=== PATIENT | male | born 1950 | race American Indian/Alaskan Native ===

== ENCOUNTER 2017-01-01 12:13 | Inpatient (IN) | payer MEDICARE ==
[2017-01-01 12:49] LABS: Basophils % (Auto) 0.2 % (0.0-1.8); Hematocrit 42.8 % (35.5-45.6); Mean Corpuscular HGB Conc 35 % (32-34); Mean Corpuscular Hemoglobin 32 pg (28-32); Mean Corpuscular Volume 91 fl (84-94); Platelet Count 201 K/mm3 (140-440); Red Cell Distribution Width 12.8 % (13.2-15.2); White Blood Count 12.4 K/mm3 (4.5-11.0)
[2017-01-01 13:07] LABS: Bilirubin,Urine NEG (Negative); Blood,Urine MOD (Negative); Ketones,Urine TR mg/dL (Negative); Leukocyte Esterase,Urine NEG (Negative); Nitrite,Urine NEG (Negative); Protein,Urine <15 mg/dL mg/dL (Negative); Urobilinogen,Urine < 2.0 mg/dL (<2.0)
[2017-01-01 13:11] LABS: Albumin 4.6 g/dL (3.9-5); Albumin/Globulin Ratio 1.3 %; Bilirubin,Total 0.6 mg/dL (0.1-1.2); Calcium 9.4 mg/dL (8.4-10.2); Chloride 91.7 mmol/L (98-107); Potassium 4.1 mmol/L (3.6-5.0); Total Protein 8.2 g/dL (6.3-8.2)
[2017-01-01] MEDS ORDERED: TYLENOL #3 PO ONE (14:00)
[2017-01-01] MEDS ORDERED: NACL 0.9% 500 ML 500 ML IV ONE (14:00)
--- NOTE | 2017-01-01 14:01 | Emergency Department Report ---
ED General Adult HPI - General Chief complaint: Urogenital-Male Stated complaint: ABD PAIN/URINE ISSUE Time Seen by Provider: 01/01/17 13:53 Source: patient, RN notes reviewed Mode of arrival: Ambulatory Limitations: No Limitations - History of Present Illness Initial comments: This is a 66-year-old male, the patient is previously unknown to this provider, he thinks his primary care doctor is Dr. De Souza, he has no chronic medical conditions that he is aware of. He presents to the ER with complaint of suprapubic abdominal fullness, urinary dribbling. No fecal retention or incontinence. No saddle anesthesia. No headache, neck pain, chest pain, abdominal pain and shortness of breath. Symptoms are constant, there is no testicular pain, abdominal pain worsens with palpation, decreases with rest, and it does not radiate anywhere. Patient endorses he is able to urinate just slightly, but endorses persistent post void dribbling and sensation of fullness. -: Gradual Location: abdomen Quality: aching Consistency: constant Improves with: rest Worsens with: movement Associated Symptoms: loss of appetite, malaise, weakness. denies: confusion, chest pain, cough, diaphoresis, fever/chills, rash, seizure, shortness of breath , syncope - Related Data Previous Rx's Medication Instructions Recorded Last Taken Type Tamsulosin [Flomax] 0.8 mg PO QDAY #60 capsule 01/03/17 Unknown Rx Allergies Allergy/AdvReac Type Severity Reaction Status Date / Time No Known Allergies Allergy Unverified 01/01/17 12:27 ED Review of Systems ROS: Stated complaint: ABD PAIN/URINE ISSUE Other details as noted in HPI Constitutional: malaise Eyes: denies: vision change ENT: denies: epistaxis Respiratory: denies: orthopnea Gastrointestinal: abdominal pain Genitourinary: as per HPI. denies: testicular pain Musculoskeletal: denies: back pain Skin: denies: lesions Neurological: weakness ED Past Medical Hx - Past Medical History Previous Medical History?: No - Surgical History Past Surgical History?: No - Social History Smoking Status: Unknown if ever smoked Substance Use Type: Alcohol - Medications Home Medications: Home Medications Medication Instructions Recorded Confirmed Last Taken Type Tamsulosin [Flomax] 0.8 mg PO QDAY #60 capsule 01/03/17 Unknown Rx ED Physical Exam - General Limitations: No Limitations General appearance: alert, in distress - Head Head exam: Present: atraumatic, normocephalic - Eye Eye exam: Present: normal appearance, EOMI. Absent: nystagmus - ENT ENT exam: Present: normal exam, normal orophraynx, mucous membranes moist, normal external ear exam - Neck Neck exam: Present: normal inspection, full ROM. Absent: tenderness, meningismus - Respiratory Respiratory exam: Present: normal lung sounds bilaterally. Absent: respiratory distress, wheezes, rales, rhonchi, stridor, chest wall tenderness, accessory muscle use, decreased breath sounds, prolonged expiratory - Cardiovascular Cardiovascular Exam: Present: regular rate, normal rhythm, normal heart sounds. Absent: bradycardia, tachycardia, irregular rhythm, systolic murmur, diastolic murmur, rubs, gallop - GI/Abdominal GI/Abdominal exam: Present: soft, distended, tenderness, normal bowel sounds, other (suprapubic distention and fullness noted). Absent: guarding, rebound, rigid, pulsatile mass - Rectal Rectal exam: Present: deferred - exam: Present: normal inspection. Absent: testicular tenderness External exam: Present: normal external exam, other (there is no testicular tenderness. There is normal testicular lie bilaterally. There is normal cremasteric reflex bilaterally.) - Extremities Exam Extremities exam: Present: normal inspection, full ROM, normal capillary refill. Absent: pedal edema, joint swelling, calf tenderness - Back Exam Back exam: Present: normal inspection, full ROM. Absent: tenderness, CVA tenderness (R), CVA tenderness (L), muscle spasm, paraspinal tenderness, vertebral tenderness - Neurological Exam Neurological exam: Present: alert, oriented X3, other (Extraocular movements intact. Tongue midline. No facial droop. Facial sensation intact to light touch in the V1, V2, V3 distribution bilaterally. 5 and 5 strength in 4 extremities.. Sensation is intact to light touch in 4 extremities.). Absent: motor sensory deficit - Psychiatric Psychiatric exam: Present: normal affect, normal mood - Skin Skin exam: Present: warm, dry, intact, normal color. Absent: rash ED Course Vital Signs 01/01/17 01/01/17 01/01/17 12:23 15:00 15:27 Temperature 97.4 F L 98.1 F Pulse Rate 92 H 74 Respiratory 18 16 17 Rate Blood Pressure 200/110 Blood Pressure [Left] O2 Sat by Pulse 99 Oximetry 01/01/17 01/01/17 15:56 17:00 Temperature 97.8 F Pulse Rate 68 64 Respiratory 19 18 Rate Blood Pressure Blood Pressure 179/91 183/97 [Left] O2 Sat by Pulse 98 Oximetry - Reevaluation(s) Reevaluation #1: 01/01/17 14:19 Differential diagnosis: Post obstructive uropathy, hypertensive urgency, dehydration, electrolyte derangement, urinary obstruction Assessment and plan: 66-year-old male, clinically sober, with post void dribbling, fullness, clinically has a full bladder, most likely has postobstructive uropathy. He is afebrile with reassuring vital signs with the exception of hypertension of which there may be a pain component. Garcia catheter placement is pending, noncontrast CT scan of the abdomen/pelvis is pending, the patient will be given IV fluids, at this point in time, I will withhold antihypertensives pending placement of a Garcia catheter. We will also discussed with nephrology, patient will require admission for rehydration and normalization of renal function. Assuming no acute surgical disease is identified on CT scan, I do not see a reason to obtain emergent urologic consultation, because if the patient were not renal failure, I would have discharged him with a leg bag to follow up with outpatient urology. Reevaluation #2: 01/01/17 14:37 Case discussed with nephrologyChana, they will follow in consultation. Reevaluation #3: 01/01/17 15:02 CT scan confirms obstructive uropathy, Garcia catheter placed, draining clear yellow urine, currently 400 mL. Case presented to Hospital physician, Dr. Stephens , who accepts the patient to his medical service for acute renal failure with obstructive uropathy. ED Medical Decision Making - Lab Data Result diagrams: 01/02/17 13:11 01/03/17 07:11 Vital Signs 01/01/17 12:23 Temperature 97.4 F L Pulse Rate 92 H Respiratory 18 Rate Blood Pressure 200/110 O2 Sat by Pulse 99 Oximetry Lab Results 01/01/17 01/01/17 01/01/17 Range/Units 12:37 12:37 Unknown WBC 12.4 H (4.5-11.0) K/mm3 RBC 4.70 (3.65-5.03) M/mm3 Hgb 15.0 (11.8-15.2) gm/dl Hct 42.8 (35.5-45.6) % MCV 91 (84-94) fl MCH 32 (28-32) pg MCHC 35 H (32-34) % RDW 12.8 L (13.2-15.2) % Plt Count 201 (140-440) K/mm3 Lymph % (Auto) 5.4 L (13.4-35.0) % [place] % (Auto) 9.5 H (0.0-7.3) % Eos % (Auto) 0.0 (0.0-4.3) % Baso % (Auto) 0.2 (0.0-1.8) % Lymph # 0.7 L (1.2-5.4) K/mm3 [place] # 1.2 H (0.0-0.8) K/mm3 Eos # 0.0 (0.0-0.4) K/mm3 Baso # 0.0 (0.0-0.1) K/mm3 Seg Neutrophils % 84.9 H (40.0-70.0) % Seg Neutrophils # 10.6 H (1.8-7.7) K/mm3 Sodium 131 L (137-145) mmol/L Potassium 4.1 (3.6-5.0) mmol/L Chloride 91.7 L (98-107) mmol/L Carbon Dioxide 22 (22-30) mmol/L Anion Gap 21 mmol/L BUN 34 H (9-20) mg/dL Creatinine 2.5 H (0.8-1.5) mg/dL Estimated GFR 31 ml/min BUN/Creatinine Ratio 14 % Glucose 117 H (75-100) mg/dL Calcium 9.4 (8.4-10.2) mg/dL Total Bilirubin 0.60 (0.1-1.2) mg/dL AST 35 (5-40) units/L ALT 15 (7-56) units/L Alkaline Phosphatase 55 (35-129) units/L Total Protein 8.2 (6.3-8.2) g/dL Albumin 4.6 (3.9-5) g/dL Albumin/Globulin Ratio 1.3 % Lipase 35 (13-60) units/L Urine Color Yellow (Yellow) Urine Turbidity Clear (Clear) Urine pH 5.0 (5.0-7.0) Ur Specific [place] 1.011 (1.003-1.030) Urine Protein <15 mg/dl (Negative) mg/dL Urine Glucose (UA) 50 (Negative) mg/dL Urine Ketones Tr (Negative) mg/dL Urine Blood Mod (Negative) Urine Nitrite Neg (Negative) Urine Bilirubin Neg (Negative) Urine Urobilinogen < 2.0 (<2.0) mg/dL Ur Leukocyte Esterase Neg (Negative) Urine WBC (Auto) 2.0 (0.0-6.0) /HPF Urine RBC (Auto) 1.0 (0.0-6.0) /HPF Critical care attestation.: If time is entered above; I have spent that time in minutes in the direct care of this critically ill patient, excluding procedure time. ED Disposition Clinical Impression: ARF (acute renal failure), Obstructive uropathy Disposition: OP ADMIT IP TO THIS HOSP Is pt being admited?: Yes Condition: Good
--- NOTE | 2017-01-01 14:41 | Cat Scan Report ---
CT OF THE ABDOMEN AND PELVIS WITHOUT CONTRAST HISTORY: Abdominal pain. TECHNIQUE: Helical CT without contrast. Sagittal and coronal reformatted images. FINDINGS: The bladder is markedly distended with simple appearing fluid. There is moderate bilateral hydronephrosis. The prostate gland is enlarged measuring 6 cm in diameter. The liver, biliary system, pancreas, spleen, adrenal glands and kidneys are unremarkable. The bowel loops are normal caliber. The appendix is not confidently identified. No evidence for ascites, abscess or free air. No bulky adenopathy. Normal heart size. Clear lung bases. No suspicious bony lesion. IMPRESSION: Distended bladder and bilateral hydronephrosis. Bladder outlet obstruction is suspected. This is probably secondary to an enlarged prostate gland.
--- NOTE | 2017-01-01 15:12 | History and Physical Report ---
History of Present Illness Chief complaint: My stomach was tight History of present illness: 66 YO Male with No PMH presents to ED for evaluation. Pt states that he has experienced fullness in his lower abdomen with inability to urinate for the past week with worsening symptoms over the past 2 days. Pt acknowledges "dribbling of urine" with interrupted urine stream. Pt states that symptoms are constant, there is no testicular pain. 'Feeling of abdominal fullness worsens with palpation, decreases with rest. Pt denies fecal retention or incontinence, saddle anesthesia, fever, chills, headache, neck pain, chest pain, abdominal pain, hematuria, NVD, Skin rash, shortness of breath. or recent ill contacts. Pt seen and evaluated in ED and found to have palpable bladder, and symptoms consistent with urinary retention. Garcia catheter placed in ED with return of urine and improvement in symptoms. Past History Past Medical History: No medical history, other (reviewed) Past Surgical History: No surgical history, Other (reviewed) Social history: , lives with family. denies: smoking, alcohol abuse, prescription drug abuse Family history: hypertension Medications and Allergies Allergies Allergy/AdvReac Type Severity Reaction Status Date / Time No Known Allergies Allergy Unverified 01/01/17 12:27 Home Medications Medication Instructions Recorded Confirmed Last Taken Type No Known Home Medications [No 01/01/17 01/01/17 Unknown History Reported Home Medications] Review of Systems Constitutional: no weight loss, no weight gain, no fever, no chills Ears, nose, mouth and throat: no ear pain, no ear discharge, no tinnitis, no decreased hearing, no nose pain, no nasal congestion, no nasal discharge Cardiovascular: no chest pain, no orthopnea, no palpitations, no rapid/ irregular heart beat, no edema, no syncope Respiratory: no cough, no cough with sputum, no excessive sputum, no hemoptysis , no shortness of breath, no dyspnea on exertion Gastrointestinal: no nausea, no vomiting, no diarrhea, no constipation, no BRBPR , no melena, no hematochezia Genitourinary Male: dysuria, urinary frequency, urinary hesitancy, no hematuria , no genital pain, no genital sores, no impotence, no decreased libido Rectal: no pain, no incontinence, no bleeding Musculoskeletal: no neck stiffness, no neck pain, no shooting arm pain, no arm numbness/tingling, no low back pain, no shooting leg pain Integumentary: no rash, no pruritis, no redness, no sores, no wounds, no jaundice Neurological: no head injury, no transient paralysis, no paralysis, no weakness , no parathesias, no numbness, no tingling, no seizures, no syncope Psychiatric: no anxiety, no memory loss, no change in sleep habits, no sleep disturbances, no insomnia, no hypersomnia, no change in appetite, no change in libido Endocrine: no cold intolerance, no heat intolerance, no polyphagia, no excessive thirst, no polydipsia, no polyuria, no nocturia Hematologic/Lymphatic: no easy bruising, no easy bleeding Allergic/Immunologic: no urticaria, no allergic rhinitis, no wheezing Exam - Constitutional Vitals: Temp Pulse Resp BP Pulse Ox 97.4 F L 92 H 18 200/110 99 01/01/17 12:23 01/01/17 12:23 01/01/17 12:23 01/01/17 12:23 01/01/17 12:23 General appearance: Present: mild distress - EENT Eyes: Present: PERRL ENT: hearing intact, clear oral mucosa - Neck Neck: Present: supple, normal ROM - Respiratory Respiratory effort: normal Respiratory: bilateral: CTA - Cardiovascular Heart Sounds: Present: S1 & S2. Absent: rub, click - Extremities Extremities: pulses symmetrical, No edema Peripheral Pulses: within normal limits - Abdominal General gastrointestinal: Present: soft, non-tender, non-distended, normal bowel sounds Male genitourinary: Present: normal - Integumentary Integumentary: Present: clear, warm, dry - Musculoskeletal Musculoskeletal: gait normal, strength equal bilaterally - Psychiatric Psychiatric: appropriate mood/affect, intact judgment & insight - Neurologic Neurologic: CNII-XII intact, moves all extremities Results - Labs CBC & Chem 7: 01/01/17 12:37 01/01/17 12:37 Labs: Abnormal lab results 01/01/17 01/01/17 Range/Units 12:37 12:37 WBC 12.4 H (4.5-11.0) K/mm3 MCHC 35 H (32-34) % RDW 12.8 L (13.2-15.2) % Lymph % (Auto) 5.4 L (13.4-35.0) % [place] % (Auto) 9.5 H (0.0-7.3) % Lymph # 0.7 L (1.2-5.4) K/mm3 [place] # 1.2 H (0.0-0.8) K/mm3 Seg Neutrophils % 84.9 H (40.0-70.0) % Seg Neutrophils # 10.6 H (1.8-7.7) K/mm3 Sodium 131 L (137-145) mmol/L Chloride 91.7 L (98-107) mmol/L BUN 34 H (9-20) mg/dL Creatinine 2.5 H (0.8-1.5) mg/dL Glucose 117 H (75-100) mg/dL Assessment and Plan - Patient Problems (1) Obstructive uropathy Current Visit: Yes Status: Acute Plan to address problem: Monitor uop q shift, Garcia catheter placed in ED, Nephrology consulted in ED, repeat bmp. Outpatient Urology F/U, PSA level (2) Malignant hypertension Current Visit: Yes Status: Acute Plan to address problem: monitor BP q shift, supportive care, IV hydralazine q6hrs prn, initiate calcium channel lavern therapy (3) Hyponatremia syndrome Current Visit: Yes Status: Acute Plan to address problem: repeat bmp, monitor uop q shift, free water intake (4) ARF (acute renal failure) Current Visit: Yes Status: Acute Qualifiers: Acute renal failure type: A Plan to address problem: monitor uop q shift, supportive care, nephrology consulted, repeat bmp (5) DVT prophylaxis Current Visit: Yes Status: Acute
[2017-01-01] MEDS ORDERED: TYLENOL PO PRN (15:30)
[2017-01-01] MEDS ORDERED: PROVENTIL IH PRN (15:30)
[2017-01-01] MEDS ORDERED: APRESOLINE IV PRN (15:53)
[2017-01-01] MEDS ORDERED: FLOMAX PO ONE (15:53)
--- NOTE | 2017-01-01 16:25 | XRay Report ---
AP CHEST: HISTORY: Dyspnea AP view of the chest demonstrates a normal mediastinal and cardiac contour with clear lungs and normal bony and soft tissue structures. IMPRESSION: Unremarkable AP chest.
--- NOTE | 2017-01-02 10:43 | Consultation ---
History of Present Illness - Reason for Consult Consult date: 01/02/17 acute renal failure Requesting physician: AGATA SCHROEDER - History of Present Illness 66 YO Male with No PMH presents to ED for evaluation. Pt states that he has experienced fullness in his lower abdomen with inability to urinate for the past week with worsening symptoms over the past 2 days. Pt acknowledges "dribbling of urine" with interrupted urine stream. Pt states that symptoms are constant, there is no testicular pain. 'Feeling of abdominal fullness worsens with palpation, decreases with rest. Pt denies fecal retention or incontinence, saddle anesthesia, fever, chills, headache, neck pain, chest pain, abdominal pain, hematuria, NVD, Skin rash, shortness of breath. or recent ill contacts. Pt seen and evaluated in ED and found to have palpable bladder, and symptoms consistent with urinary retention. Zuniga catheter placed in ED with return of urine and improvement in symptoms. Past History Past Medical History: No medical history, other (reviewed) Past Surgical History: No surgical history, Other (reviewed) Social history: , lives with family. denies: smoking, alcohol abuse, prescription drug abuse Family history: hypertension Medications and Allergies Allergies Allergy/AdvReac Type Severity Reaction Status Date / Time No Known Allergies Allergy Unverified 01/01/17 12:27 Home Medications Medication Instructions Recorded Confirmed Last Taken Type No Known Home Medications [No 01/01/17 01/01/17 Unknown History Reported Home Medications] Active Meds: Active Medications Acetaminophen (Tylenol) 650 mg PO Q4H PRN PRN Reason: Pain MILD(1-3)/Fever >100.5/SANZ Albuterol (Proventil) 2.5 mg IH Q4HRT PRN PRN Reason: Shortness Of Breath Hydralazine HCl (Apresoline) 10 mg IV Q6HR PRN PRN Reason: HTN SYS>160 Last Admin: 01/01/17 17:53 Dose: 10 mg Review of Systems Constitutional: weakness, malaise Genitourinary Male: dysuria, urinary hesitancy Exam - Vital Signs Vital signs: Vital Signs Temp Pulse Resp BP Pulse Ox 97.4 F L 92 H 18 200/110 99 01/01/17 12:23 01/01/17 12:23 01/01/17 12:23 01/01/17 12:23 01/01/17 12:23 - Physical Exam Narrative exam: General appearance: Present: mild distress - EENT Eyes: Present: PERRL ENT: hearing intact, clear oral mucosa - Neck Neck: Present: supple, normal ROM - Respiratory Respiratory effort: normal Respiratory: bilateral: CTA - Cardiovascular Heart Sounds: Present: S1 & S2. Absent: rub, click - Extremities Extremities: pulses symmetrical, No edema Peripheral Pulses: within normal limits - Abdominal General gastrointestinal: Present: soft, non-tender, non-distended, normal bowel sounds Male genitourinary: Present: normal - Integumentary Integumentary: Present: clear, warm, dry - Musculoskeletal Musculoskeletal: gait normal, strength equal bilaterally - Psychiatric Psychiatric: appropriate mood/affect, intact judgment & insight - Neurologic Neurologic: CNII-XII intact, moves all extremities Results - Lab Results 01/01/17 12:37 01/01/17 12:37 Most recent lab results Calcium 9.4 mg/dL (8.4-10.2) 01/01/17 12:37 Assessment and Plan Impression: * NICKY * bilateral obstruction * Urinary obstruction * HTN * Abd pain Plan: * zuniga in place * daily lytes * urology to see for bladder outlet obstruction * strict i/os * avoid nephrotoxins * iv abx for pyuria * add flomax
[2017-01-02] MEDS ORDERED: ROCEPHIN/NS 1 GM/50 ML 1 GM/50 ML BAG IV SCH (11:00)
[2017-01-02 13:32] LABS: Basophils % (Auto) 0.4 % (0.0-1.8); Eosinophils % (Auto) 0.5 % (0.0-4.3); Hematocrit 42.3 % (35.5-45.6); Mean Corpuscular HGB Conc 33 % (32-34); Mean Corpuscular Hemoglobin 31 pg (28-32); Mean Corpuscular Volume 93 fl (84-94); Platelet Count 174 K/mm3 (140-440); Red Blood Count 4.55 M/mm3 (3.65-5.03); Red Cell Distribution Width 12.7 % (13.2-15.2); White Blood Count 8.1 K/mm3 (4.5-11.0)
[2017-01-02 13:43] LABS: Chloride 100.8 mmol/L (98-107); Potassium 3.6 mmol/L (3.6-5.0)
--- NOTE | 2017-01-02 16:56 | Progress Note ---
Assessment and Plan consult dictated ok for d/c with zuniga needs out pt w/u pt aware zuniga draining clear Subjective Date of service: 01/02/17 Principal diagnosis: urinary retention Objective - Constitutional Vitals: Vital Signs - 12hr 01/02/17 01/02/17 01/02/17 08:58 10:54 15:06 Temperature 98.3 F 97.8 F Pulse Rate 90 74 Respiratory 20 20 Rate Blood Pressure 141/70 152/78 O2 Sat by Pulse 96 97 98 Oximetry General appearance: Present: no acute distress - Neck Neck: supple - Respiratory Respiratory effort: normal Extremities: no ischemia - Gastrointestinal General gastrointestinal: Present: soft, non-tender Rectal Exam: normal exam-external/orifice, normal rectal tone - Labs CBC & Chem 7: 01/02/17 13:11 01/02/17 13:11 Labs: Abnormal lab results 01/02/17 01/02/17 Range/Units 13:11 13:11 RDW 12.7 L (13.2-15.2) % Seg Neutrophils % 74.1 H (40.0-70.0) % BUN 28 H (9-20) mg/dL Creatinine 1.6 H (0.8-1.5) mg/dL Glucose 139 H (75-100) mg/dL
--- NOTE | 2017-01-02 18:11 | Progress Note ---
Assessment and Plan Assessment and plan: 66-year-old man who presents with poor urine output, dribbling and abdominal distention and pain. * Acute kidney injury due to acute tubular stasis * Obstructive uropathy, concern for bladder outlet obstruction Patient is clinically improved, zuniga draining clear urine nephrology and urology input appreciated History Interval history: Denies any pain, denies any symptoms. Hospitalist Physical - Physical exam Narrative exam: General.: Appears well, no distress, nontoxic HEENT: Moist mucous membranes, extraocular muscles intact, no lymphadenopathy Neck: supple Cardiac: S1-S2 heard Lungs: clear to auscultation bilaterally Abdomen: soft , nontender, nondistended, bowel sounds positive Extremities: no edema clubbing or cyanosis Skin: no rash or lesions Neurologic: no gross focal deficits Psych: appropriate behavior, appropriate mood, corporative, judgment intact - Constitutional Vitals: Temp Pulse Resp BP Pulse Ox 97.8 F 74 20 152/78 98 01/02/17 15:06 01/02/17 15:06 01/02/17 15:06 01/02/17 15:06 01/02/17 15:06 General appearance: Present: no acute distress Results - Labs CBC & Chem 7: 01/02/17 13:11 01/03/17 07:11 Labs: Laboratory Last Values WBC 8.1 K/mm3 (4.5-11.0) 01/02/17 13:11 RBC 4.55 M/mm3 (3.65-5.03) 01/02/17 13:11 Hgb 14.0 gm/dl (11.8-15.2) 01/02/17 13:11 Hct 42.3 % (35.5-45.6) 01/02/17 13:11 MCV 93 fl (84-94) 01/02/17 13:11 MCH 31 pg (28-32) 01/02/17 13:11 MCHC 33 % (32-34) 01/02/17 13:11 RDW 12.7 % (13.2-15.2) L 01/02/17 13:11 Plt Count 174 K/mm3 (140-440) 01/02/17 13:11 Lymph % (Auto) 18.2 % (13.4-35.0) 01/02/17 13:11 [place] % (Auto) 6.8 % (0.0-7.3) 01/02/17 13:11 Eos % (Auto) 0.5 % (0.0-4.3) 01/02/17 13:11 Baso % (Auto) 0.4 % (0.0-1.8) 01/02/17 13:11 Lymph # 1.5 K/mm3 (1.2-5.4) 01/02/17 13:11 [place] # 0.6 K/mm3 (0.0-0.8) 01/02/17 13:11 Eos # 0.0 K/mm3 (0.0-0.4) 01/02/17 13:11 Baso # 0.0 K/mm3 (0.0-0.1) 01/02/17 13:11 Seg Neutrophils % 74.1 % (40.0-70.0) H 01/02/17 13:11 Seg Neutrophils # 6.0 K/mm3 (1.8-7.7) 01/02/17 13:11 Sodium 139 mmol/L (137-145) D 01/02/17 13:11 Potassium 3.6 mmol/L (3.6-5.0) 01/02/17 13:11 Chloride 100.8 mmol/L (98-107) 01/02/17 13:11 Carbon Dioxide 26 mmol/L (22-30) 01/02/17 13:11 Anion Gap 16 mmol/L 01/02/17 13:11 BUN 28 mg/dL (9-20) H 01/02/17 13:11 Creatinine 1.6 mg/dL (0.8-1.5) H 01/02/17 13:11 Estimated GFR 52 ml/min 01/02/17 13:11 BUN/Creatinine Ratio 18 % 01/02/17 13:11 Glucose 139 mg/dL (75-100) H 01/02/17 13:11 Calcium 9.0 mg/dL (8.4-10.2) 01/02/17 13:11 Total Bilirubin 0.60 mg/dL (0.1-1.2) 01/01/17 12:37 AST 35 units/L (5-40) 01/01/17 12:37 ALT 15 units/L (7-56) 01/01/17 12:37 Alkaline Phosphatase 55 units/L (35-129) 01/01/17 12:37 Total Protein 8.2 g/dL (6.3-8.2) 01/01/17 12:37 Albumin 4.6 g/dL (3.9-5) 01/01/17 12:37 Albumin/Globulin Ratio 1.3 % 01/01/17 12:37 Lipase 35 units/L (13-60) 01/01/17 12:37 Prostate Specific Ag 3.89 ng/mL (0.00-4.00) 01/01/17 16:46 Urine Color Yellow (Yellow) 01/01/17 Unknown Urine Turbidity Clear (Clear) 01/01/17 Unknown Urine pH 5.0 (5.0-7.0) 01/01/17 Unknown Ur Specific [place] 1.011 (1.003-1.030) 01/01/17 Unknown Urine Protein <15 mg/dl mg/dL (Negative) 01/01/17 Unknown Urine Glucose (UA) 50 mg/dL (Negative) 01/01/17 Unknown Urine Ketones Tr mg/dL (Negative) 01/01/17 Unknown Urine Blood Mod (Negative) 01/01/17 Unknown Urine Nitrite Neg (Negative) 01/01/17 Unknown Urine Bilirubin Neg (Negative) 01/01/17 Unknown Urine Urobilinogen < 2.0 mg/dL (<2.0) 01/01/17 Unknown Ur Leukocyte Esterase Neg (Negative) 01/01/17 Unknown Urine WBC (Auto) 2.0 /HPF (0.0-6.0) 01/01/17 Unknown Urine RBC (Auto) 1.0 /HPF (0.0-6.0) 01/01/17 Unknown
--- NOTE | 2017-01-03 04:33 | Consultation ---
HISTORY OF PRESENT ILLNESS: This gentleman presented with urinary retention, azotemia. Creatinine was 2.5, it is now 1.6 with Garcia catheter drainage. Urological consultation was obtained. He had a CT scan for abdominal pain when he came in through the Emergency Room. This showed a very distended bladder with bilateral hydronephrosis consistent with bladder outlet obstruction. The patient denies any previous manipulation or urological history except for erectile dysfunction. PAST MEDICAL HISTORY: As mentioned above. He denies any surgery. PAST SURGICAL HISTORY: Negative. FAMILY HISTORY: Denies history of prostate cancer. SOCIAL HISTORY: Negative. ALLERGIES: Negative. REVIEW OF SYSTEMS: He is much more comfortable, but he has a little discomfort from the Garcia. PHYSICAL EXAMINATION: GENERAL: Awake, alert, in no distress. HEENT: Normocephalic, nontraumatic. ABDOMEN: Soft, nondistended. No guarding or rebound. GENITALIA: Circumcised testes and bilaterally no irregularities. Digital rectal exam, smooth, symmetrical gland, no nodules. IMPRESSION: Urinary retention. He needs a workup including a PSA. There are no nodules palpated, but he has never had urological evaluation. PLAN: Follow up in the office. Home with Garcia. JOB# [id number] CONSUELO/TOM
[2017-01-03 08:11] LABS: Anion Gap 16 mmol/L; BUN/Creatinine Ratio 17; Blood Urea Nitrogen 20 mg/dL (9-20); Calcium 8.8 mg/dL (8.4-10.2); Carbon Dioxide 26 mmol/L (22-30); Chloride 101.3 mmol/L (98-107); Glucose 88 mg/dL (75-100); Potassium 3.9 mmol/L (3.6-5.0); Sodium 139 mmol/L (137-145)
--- NOTE | 2017-01-03 08:19 | Progress Note ---
Assessment and Plan Impression: * NICKY * bilateral obstruction * Urinary obstruction * HTN * Abd pain Plan: * zuniga in place * daily lytes * cr is 1.2 and back to baseline * urology followin bladder outlet obstruction * strict i/os * avoid nephrotoxins * iv abx for pyuria * added flomax * ok to dc from renal standpoint Subjective Date of service: 01/03/17 Principal diagnosis: urinary retention Interval history: resting well in bed today Objective - Exam Narrative Exam: General appearance: Present: mild distress - EENT Eyes: Present: PERRL ENT: hearing intact, clear oral mucosa - Neck Neck: Present: supple, normal ROM - Respiratory Respiratory effort: normal Respiratory: bilateral: CTA - Cardiovascular Heart Sounds: Present: S1 & S2. Absent: rub, click - Extremities Extremities: pulses symmetrical, No edema Peripheral Pulses: within normal limits - Abdominal General gastrointestinal: Present: soft, non-tender, non-distended, normal bowel sounds Male genitourinary: Present: normal - Integumentary Integumentary: Present: clear, warm, dry - Musculoskeletal Musculoskeletal: gait normal, strength equal bilaterally - Psychiatric Psychiatric: appropriate mood/affect, intact judgment & insight - Neurologic Neurologic: CNII-XII intact, moves all extremities - Vital Signs Vital signs: Vital Signs - 12hr 01/02/17 01/03/17 21:50 07:41 Temperature 98.8 F 98.4 F Pulse Rate 67 67 Respiratory 14 20 Rate Blood Pressure 155/80 163/88 O2 Sat by Pulse 96 96 Oximetry - Lab 01/02/17 13:11 01/03/17 07:11 Most recent lab results Calcium 8.8 mg/dL (8.4-10.2) 01/03/17 07:11
[2017-01-03] MEDS ORDERED: FLOMAX PO SCH (10:00)
--- NOTE | 2017-01-03 11:28 | Discharge Summary ---
Providers - Providers Date of Admission: 01/01/17 15:30 Attending physician: ANDREW GARCÍA MD 01/02/17 12:25 Consult to Physician [CONS] Routine Consulting Provider: CARRIE WHITNEY Reason For Exam: urinary obstruction Place consult to:: Khadijah Notified:: yes Phone number called:: [phone] If yes, spoke with:: Tia Time called:: 16:50 Primary care physician: DENITA HALL Hospitalization Condition: Good Hospital course: 66-year-old man who presents with poor urine output, dribbling and abdominal distention and pain. He received Garcia catheter, after which he had very good urine production, urinalysis was negative for any significant pyuria.. His creatinine trended downwards. He was seen by nephrology and urology, neurology recommended him going home with Garcia catheter, following up in urology clinic. His renal function completely normalized prior to discharge. Diagnosis * Acute kidney injury due to acute tubular stasis * Obstructive uropathy, concern for bladder outlet obstruction Disposition: - TO HOME OR SELFCARE Time spent for discharge: 33 minutes Core Measure Documentation - Palliative Care Palliative Care/ Comfort Measures: Not Applicable - Core Measures Any of the following diagnoses?: none Exam - Constitutional Vitals: Temp Pulse Resp BP Pulse Ox 98.4 F 67 20 163/88 96 01/03/17 07:41 01/03/17 07:41 01/03/17 07:41 01/03/17 07:41 01/03/17 07:41 General appearance: Present: no acute distress, well-nourished - EENT Eyes: Present: PERRL ENT: hearing intact, clear oral mucosa - Neck Neck: Present: supple, normal ROM - Respiratory Respiratory effort: normal Respiratory: bilateral: CTA - Cardiovascular Heart Sounds: Present: S1 & S2. Absent: rub, click - Extremities Extremities: pulses symmetrical, No edema Peripheral Pulses: within normal limits - Abdominal General gastrointestinal: Present: soft, non-tender, non-distended, normal bowel sounds Male genitourinary: Present: normal - Integumentary Integumentary: Present: clear, warm, dry - Musculoskeletal Musculoskeletal: gait normal, strength equal bilaterally - Psychiatric Psychiatric: appropriate mood/affect, intact judgment & insight - Neurologic Neurologic: CNII-XII intact, moves all extremities Plan Follow up with: DENITA HALL MD [Primary Care Provider] - 3-5 Days Prescriptions: Tamsulosin [Flomax] 0.8 mg PO QDAY #60 capsule
[2017-01-03 15:35] VITALS: BP 165/92
== END 2017-01-03 18:15 | disposition home or self-care (01) | DRG 698 ==
LOC: ED 12:13 → 3A 15:30
PROVIDERS: ADMIT Internal Medicine; ATTEND Internal Medicine
DX: N13.9 Obstructive and reflux uropathy, unspecified (principal); N17.0 Acute kidney failure with tubular necrosis; E87.1 Hypo-osmolality and hyponatremia; I10 Essential (primary) hypertension; Z82.49 Family history of ischemic heart disease and other diseases of the circulatory system; N32.0 Bladder-neck obstruction
CPT/HCPCS: 36415; 71010; 74176; 80048; 80053; 81001; 83690; 84153; 85025; 96360; J0360; J7040